=== PATIENT | male | born 1945 | race Asian ===

== ENCOUNTER 2020-08-31 05:52 | Day surgery (SDC) | payer OTHER ==
[~2020-08-31] VITALS: Ht 165.1 cm; Wt 79.1 kg
[~2020-08-31 05:52] MED LIST: AMLO10TA55 PO; ASPI-1444 PO; CANA100T PO; DICL75TA5 PO; DOXA4TAB3 PO; ETHA400T33 PO; FENO67CA8 PO; GLIP10 PO; HYDR25TA PO; ISON300T17 PO; LEVO75 PO; METF-960 PO; NIAC-8 PO; OMEG-112 PO; PYRA500T15 PO; PYRI-14 PO; RIFA300 PO; SITA100 PO
[2020-08-31] MEDS ORDERED: SODIUM CHLORIDE 0.9% 1,000 ML IV ONE (06:00)
[2020-08-31 06:43] LABS: COVID AG,FIA SOURCE NASOPHARYNGEAL
[2020-08-31] MEDS ORDERED: SODIUM CHLORIDE 0.9% 1,000 ML ONE (07:31)
[2020-08-31] MEDS ORDERED: FentaNYL CITRATE PF 100 MCG/2 ML VIAL ONE (07:43)
[2020-08-31] MEDS ORDERED: MIDAZOLAM HCL 2 MG/2 ML VIAL ONE (07:43)
[2020-08-31 08:02] LABS: GLUCOMETER DEV NAME(LOC) SDS.; GLUCOSE,POINT OF CARE 165 MG/DL (70-110)
[2020-08-31] MEDS ORDERED: MethylPREDNISolone SOD SUCC 125 MG/2 ML VIAL IVP ONE (09:00)
[2020-08-31] MEDS ORDERED: MIDAZOLAM HCL 5 MG/ML VIAL ONE (09:07)
[2020-08-31] MEDS ORDERED: BENZOCAINE 20% 50 MCG/SPRAY 57 GM ONE (16:57)
[2020-08-31] MEDS ORDERED: ALBUTEROL SULFATE 2.5 MG/0.5 ML NEB SOLUTION NEB ONE (16:57)
[2020-08-31] MEDS ORDERED: OXYGEN THERAPY IH SCH (20:00)
== END 2020-08-31 11:06 | disposition home or self-care (01) ==
LOC: SURGERY 05:52
PROVIDERS: ATTEND Internal Medicine Critical Care Medicine
DX: J38.4 Edema of larynx (principal); B37.0 Candidal stomatitis; Z79.82 Long term (current) use of aspirin; Z79.899 Other long term (current) drug therapy
CPT/HCPCS: 31623; 31624; 71045; 82962; 87015; 87070; 87077; 87101; 87206; 87220; 87426; 88108; 88184; 88185; 88312; C9803; J2250 ×2; J3010; J7030; 87186; J7613

== ENCOUNTER 2022-09-07 06:40 | Day surgery (SDC) | payer OTHER ==
[~2022-09-07] VITALS: Ht 165.1 cm; Wt 79.1 kg
[~2022-09-07 06:40] MED LIST changes: -DICL75TA5 PO; -ETHA400T33 PO; +FENO67CA16 PO; -FENO67CA8 PO; -GLIP10 PO; +GLIP10TA10 PO; -ISON300T17 PO; +METF-1211 PO; -METF-960 PO; -PYRA500T15 PO; -PYRI-14 PO; -RIFA300 PO
[2022-09-07] MEDS ORDERED: LIDOCAINE 4% 50 ML SOLUTION TP ONE (06:41)
[2022-09-07] MEDS ORDERED: LIDOCAINE 2% 11 ML JELLY TP ONE (06:41)
[2022-09-07] MEDS ORDERED: BENZOCAINE 20% 50 MCG/SPRAY 57 GM TP ONE (06:41)
[2022-09-07] MEDS ORDERED: ALBUTEROL SULFATE 2.5 MG/0.5 ML NEB SOLUTION NEB ONE (06:41)
[2022-09-07] MEDS ORDERED: SODIUM CHLORIDE 0.9% 1,000 ML ONE (07:34)
[2022-09-07 08:06] LABS: GLUCOMETER DEV NAME(LOC) SDS.
[2022-09-07] MEDS ORDERED: FentaNYL CITRATE PF 100 MCG/2 ML VIAL ONE (08:06)
[2022-09-07] MEDS ORDERED: MIDAZOLAM HCL 2 MG/2 ML VIAL ONE (08:07)
[2022-09-07] MEDS ORDERED: SODIUM CHLORIDE 0.9% 1,000 ML IV ONE (08:15)
[2022-09-07] MEDS ORDERED: MethylPREDNISolone SOD SUCC 125 MG/2 ML VIAL ONE (09:51)
[2022-09-07] MEDS ORDERED: MethylPREDNISolone SOD SUCC 125 MG/2 ML VIAL IVP ONE (10:00)
== END 2022-09-07 11:35 | disposition home or self-care (01) ==
LOC: SURGERY 06:40
PROVIDERS: ATTEND Internal Medicine Critical Care Medicine
DX: J38.4 Edema of larynx (principal); B37.0 Candidal stomatitis; I10 Essential (primary) hypertension; E11.9 Type 2 diabetes mellitus without complications; Z79.82 Long term (current) use of aspirin; Z79.899 Other long term (current) drug therapy
CPT/HCPCS: 31623; 88112; 82962; 87206; 87101; 87220; 87070; 87015; 31624; 94640; 71045; J3010; J2250; J2930; Q9967; J7030; J7613; Z7610

== ENCOUNTER 2023-10-11 06:17 | Day surgery (SDC) | payer OTHER ==
[~2023-10-11] VITALS: Ht 165.1 cm; Wt 79.1 kg
[2023-10-11] MEDS ORDERED: BENZOCAINE 20% 50 MCG/SPRAY 57 GM TP ONE (06:18)
[2023-10-11] MEDS ORDERED: LIDOCAINE 4% 50 ML SOLUTION TP ONE (06:18)
[2023-10-11] MEDS ORDERED: LIDOCAINE 2% 11 ML JELLY TP ONE (06:18)
[2023-10-11] MEDS ORDERED: ALBUTEROL SULFATE 2.5 MG/0.5 ML NEB SOLUTION NEB ONE (06:18)
[2023-10-11] MEDS: SODIUM CHLORIDE 0.9% 1,000 ML IV ONE (07:50)
[2023-10-11] MEDS ORDERED: FentaNYL CITRATE PF 100 MCG/2 ML VIAL ONE (07:51)
[2023-10-11] MEDS ORDERED: MIDAZOLAM HCL 2 MG/2 ML VIAL ONE (07:51)
[2023-10-11 08:00] LABS: GLUCOMETER DEV NAME(LOC) SDS.; GLUCOSE,POINT OF CARE 118 MG/DL (70-110)
[2023-10-11 09:05] VITALS: PULSE 70; RESP 12; O2SAT 100
[2023-10-11] MEDS ORDERED: MethylPREDNISolone SOD SUCC 125 MG/2 ML VIAL ONE (09:53)
[2023-10-11] MEDS: MethylPREDNISolone SOD SUCC 125 MG/2 ML VIAL IVP ONE (10:04)
== END 2023-10-11 11:30 | disposition home or self-care (01) ==
LOC: SURGERY 06:17
PROVIDERS: ATTEND Internal Medicine Critical Care Medicine
DX: R05.3 Chronic cough (principal); R04.2 Hemoptysis; J98.8 Other specified respiratory disorders; J84.10 Pulmonary fibrosis, unspecified; R91.8 Other nonspecific abnormal finding of lung field; J98.09 Other diseases of bronchus, not elsewhere classified; I10 Essential (primary) hypertension; E11.9 Type 2 diabetes mellitus without complications; E78.00 Pure hypercholesterolemia, unspecified; Z85.21 Personal history of malignant neoplasm of larynx; Z79.899 Other long term (current) drug therapy; Z98.890 Other specified postprocedural states; Z95.2 Presence of prosthetic heart valve
CPT/HCPCS: 31623; 82962; 87206; 87101; 87220; 87070; 88108; 31624; 94640; 71045; 87015; J3010; J2250; J2919; J7613; Z7610